=== PATIENT | male | born 1970 | race Caucasian/White ===

== ENCOUNTER → 2020-04-03 | Day surgery (SDC) | payer BC ==
[~2020-04-03] MED LIST: BUPIVACAINE HCL 0.5% INJ 30 ML VIAL INJ ONE; CEFAZOLIN SOD 1 GM VIAL ONE; DEXAMETHASONE SOD PHOS INJ 4 MG/ML VIAL ONE; EPHEDRINE SULFATE INJ 50 MG/ML VIAL ONE; FENTANYL CITRATE/PF 100MCG/2 ML INJ ONE; KETOROLAC TROMETHAMINE 30 MG/ML VIAL ONE; LABETALOL HCL 0 ML ONE; LIDOCAINE HCL 2% LOCAL INJ 5 ML SDV VIAL INJ ONE; LOSARTAN PO; MIDAZOLAM HCL 2 MG/2 ML VIAL ONE; NEOSTIGMINE 1 MG/ML 10ML VIAL ONE; ONDANSETRON HCL INJ 2MG/ML 2ML 2 MG/ML VIAL ONE; PROPOFOL IV EMULSION 10 MG/ML 20 ML VIAL ONE; SEVOFLURANE INHAL SOLN 250 ML PEN BTL ONE; TESTOSTERONE INJ
[2020-04-03 13:35] VITALS: BP 118/79
== END | disposition home or self-care (01) ==
LOC: OR 08:07 → EDSEX 10:30 → EDUNIT# 10:30
PROVIDERS: ATTEND Podiatrist Foot Surgery
DX: S92.401A Displaced unspecified fracture of right great toe, initial encounter for closed fracture (principal); M1A.9XX1 Chronic gout, unspecified, with tophus (tophi); I10 Essential (primary) hypertension; K21.9 Gastro-esophageal reflux disease without esophagitis; X58.XXXA Exposure to other specified factors, initial encounter; Z88.6 Allergy status to analgesic agent; Z01.812 Encounter for preprocedural laboratory examination; Z11.59 Encounter for screening for other viral diseases
CPT/HCPCS: 28285; 88305; 88311; 89060; 93005; J0690; J1100; J1885; J2001; J2250; J2405; J2704; J3010; Q4100; U0002; 76000; 88304; J2710